=== PATIENT | male | born 1990 | race African-American/Black ===

== ENCOUNTER 2016-08-26 19:29 | Inpatient (IN) | payer MEDICAID, OTHER ==
[~2016-08-26] VITALS: Ht 167.6 cm; Wt 61.5 kg
[~2016-08-26 19:29] MED LIST: LACTATED RINGER'S 1000 ML INJ 2,000 ML IV ONE; ONDANSETRON HCL 4 MG/2 ML VIAL IV PUSH ONE; PHENYLEPH/NS 1000 MCG/10 ML SYR IV ONE; PROPOFOL 200 MG/20 ML AMP IV ONE
[2016-08-26 19:41] VITALS: BP 132/90; PULSE 78; RESP 20; TEMP 98; O2SAT 99
[2016-08-26] MEDS ORDERED: SODIUM CHLOR 0.9% 1000 ML INJ 1,000 ML IV SCH (21:28)
[2016-08-26] MEDS ORDERED: SODIUM CHLORIDE 0.9% FLUSH 10 ML FLUSH IV FLUSH PRN (21:30)
[2016-08-26] MEDS ORDERED: ONDANSETRON HCL 4 MG/2 ML VIAL IVP ONE (21:30)
--- NOTE | 2016-08-26 21:33 | PD ---
HPI Chief Complaint: Abdominal Pain Time Seen by Provider: 21:29 Travel History International Travel<30 days: No Contact w/Intl Traveler<30days: No Traveled to known affect area: No History of Present Illness HPI 27-year-old male presents to the emergency department for evaluation of abdominal pain for 2 days. Patient states it is on his right side. He is sleeping and is very lethargic on my exam, only waking up when I asked him to please answer my questions. The patient states he is out of custodial today. He states he has not been evaluated for this pain. No fevers or chills. No shortness of breath or chest pain. He reports nausea and vomiting. No diarrhea or constipation. No blood in the stool. He reports no chronic medical problems and takes no medications. He denies any previous surgeries or previous abdominal issues. [facility] Social History Alcohol Use: No Tobacco Use: No Substance Use: No Allergies-Medications (Allergen,Severity, Reaction): Coded Allergies: No Known Allergies (Unverified , 08/26/16) Reported Meds & Prescriptions Reported Meds & Active Scripts Active No Active Prescriptions or Reported Medications Review of Systems Except as stated in HPI: all other systems reviewed are Neg Physical Exam Narrative GENERAL: Well-nourished, well-developed male patient, Ambulatory. Afebrile. SKIN: Focused skin assessment warm/dry. HEAD: Normocephalic. Atraumatic. EYES: No scleral icterus. No injection or drainage. NECK: Supple, trachea midline. No JVD or lymphadenopathy. CARDIOVASCULAR: Regular rate and rhythm without murmurs, gallops, or rubs. RESPIRATORY: Breath sounds equal bilaterally. No accessory muscle use. Lungs sounds are clear to auscultation. GASTROINTESTINAL: Abdomen soft and nondistended. Patient has diffuse tenderness throughout. MUSCULOSKELETAL: No cyanosis, or edema. BACK: Nontender without obvious deformity. No CVA tenderness. Data Data Last Documented VS Vital Signs Date Time Temp Pulse Resp B/P Pulse Ox O2 Delivery O2 Flow Rate FiO2 08/26/16 22:51 84 14 111/80 99 Room Air 08/26/16 19:41 98.0 Orders Complete Blood Count With Diff (08/26/16 21:28) Comprehensive Metabolic Panel (08/26/16 21:28) Lipase (08/26/16 21:28) Iv Access Insert/Monitor (08/26/16 21:28) Ecg Monitoring (08/26/16 21:28) Oximetry (08/26/16 21:28) Ondansetron Inj (Zofran Inj) (08/26/16 21:30) Sodium Chlor 0.9% 1000 Ml Inj (Ns 1000 M (08/26/16 21:28) Sodium Chloride 0.9% Flush (Ns Flush) (08/26/16 21:30) Ct Abd/Pel W/O Iv Contrast (08/26/16 ) Blood Culture (08/26/16 22:31) Lactic Acid Sepsis Protocol (08/26/16 22:31) Sodium Chlor 0.9% 1000 Ml Inj (Ns 1000 M (08/26/16 22:45) Cefepime Inj (Maxipime Inj) (08/26/16 22:45) Piperacil-Tazo 4.5 Gm Premix (Zosyn 4.5 (08/26/16 22:45) Labs Laboratory Tests Test 08/26/16 21:40 White Blood Count 31.9 TH/MM3 Red Blood Count 5.64 MIL/MM3 Hemoglobin 16.4 GM/DL Hematocrit 47.4 % Mean Corpuscular Volume 84.0 FL Mean Corpuscular Hemoglobin 29.1 PG Mean Corpuscular Hemoglobin 34.7 % Concent Red Cell Distribution Width 13.3 % Platelet Count 221 TH/MM3 Mean Platelet Volume 9.6 FL Neutrophils (%) (Auto) 94.1 % Lymphocytes (%) (Auto) 2.0 % Monocytes (%) (Auto) 3.6 % Eosinophils (%) (Auto) 0.0 % Basophils (%) (Auto) 0.3 % Neutrophils # (Auto) 30.0 TH/MM3 Lymphocytes # (Auto) 0.6 TH/MM3 Monocytes # (Auto) 1.1 TH/MM3 Eosinophils # (Auto) 0.0 TH/MM3 Basophils # (Auto) 0.1 TH/MM3 CBC Comment AUTO DIFF Sodium Level 134 MEQ/L Potassium Level 4.2 MEQ/L Chloride Level 93 MEQ/L Carbon Dioxide Level 30.0 MEQ/L Anion Gap 11 MEQ/L Blood Urea Nitrogen 14 MG/DL Creatinine 1.24 MG/DL Estimat Glomerular Filtration 87 ML/MIN Rate Random Glucose 160 MG/DL Calcium Level 9.2 MG/DL Total Bilirubin 0.5 MG/DL Aspartate Amino Transf 13 U/L (AST/SGOT) Alanine Aminotransferase 22 U/L (ALT/SGPT) Alkaline Phosphatase 80 U/L Total Protein 8.1 GM/DL Albumin 4.0 GM/DL Lipase 128 U/L [facility] Medical Decision Making Medical Screen Exam Complete: Yes Emergency Medical Condition: Yes Medical Record Reviewed: Yes Interpretation(s) CT abdomen/pelvis - CONCLUSION: Free intraperitoneal air in the upper abdomen. The source of this free air is not seen, certainly a bowel perforation needs to be suspected. Differential Diagnosis Pancreatitis versus appendicitis versus diverticulitis versus gastritis Narrative Course 26-year-old male presents to the emergency department for evaluation of abdominal pain for 2 days. CBC, CMP, lipase are ordered and pending. CT abdomen/pelvis with IV contrast is ordered and pending. Patient is given normal saline 1 L IV bolus and Zofran 4 mg IV. CBC shows leukocytosis 31.9, neutrophil percentage is 94.1. CMP shows no acute abnormality. Lipase is 128. CT abdomen/pelvis shows free intraperitoneal air in the upper abdomen. The source of this free air is not seen, certainly a bowel perforation needs to be suspected. Patietn is given 2nd liter NS IV bolus. Blood cultures x2 and lactic acid are ordered and pending. Patient is started on cefepime and Zosyn. Surgeon central communications specialist , Dr. Joyce, is paged. Dr. Joyce is made aware and will review case. He accepted admission. Sepsis Criteria SIRS Criteria (2 or more): WBC > 75831, < 4000 or > 10% bands Diagnosis Primary Impression: Free intraperitoneal air Additional Impression: Bowel perforation Admitting Information Admitting Physician Requests: Admit Scripts No Active Prescriptions or Reported Meds Clarice Goldsmith August 26, 2016 21:33
[2016-08-26 22:24] LABS: BASOPHIL # 0.1 TH/MM3 (0-0.2); BASOPHIL % 0.3 % (0.0-2.0); HEMATOCRIT 47.4 % (39.0-51.0); LYMPHOCYTE # 0.6 TH/MM3 (1.0-4.8); MEAN CORPUSCULAR HEMOGLOBIN 29.1 PG (27.0-34.0); MEAN CORPUSCULAR HGB CONC 34.7 % (32.0-36.0); MONO % 3.6 % (0.0-8.0); NEUT % 94.1 % (16.0-70.0); PLATELET COUNT 221 TH/MM3 (150-450); RED BLOOD COUNT 5.64 MIL/MM3 (4.50-5.90); RED CELL DISTRIBUTION WIDTH 13.3 % (11.6-17.2); WHITE BLOOD COUNT 31.9 TH/MM3 (4.0-11.0)
[2016-08-26 22:26] LABS: HEMO FLAGS AUTO DIFF
--- NOTE | 2016-08-26 22:32 | RADRPT ---
EXAM DATE/TIME: 08/26/2016 21:59 [place] COMPARISON: No previous studies available for comparison. INDICATIONS : Abdominal pain. ORAL CONTRAST: No oral contrast ingested. RADIATION DOSE: 6.64 CTDIvol (mGy) MEDICAL HISTORY : None SURGICAL HISTORY : None. ENCOUNTER: Initial ACUITY: 3 days PAIN SCALE: 5/10 LOCATION: Abdomen TECHNIQUE: Volumetric scanning of the abdomen and pelvis was performed. Using automated exposure control and ad justment of the mA and/or kV according to patient size, radiation dose was kept as low as reasonably achievable to obtain optimal diagnostic quality images. FINDINGS: The CT of the abdomen and pelvis was originally ordered with contrast. After the first few seconds of the injection the patient demanded the injection be stopped. The injection was stopped. This patie nt was sent back to the emergency room. The CT was subsequently reordered as a CT of the abdomen and pelvis without contrast. There is free intraperitoneal air seen in the upper abdomen. The source of the free air is not clear ly identified. What appears to be the appendix is identified. Significantly dilated bowel is not cl early seen. The liver, spleen, pancreas, and adrenal glands appear grossly normal. There is contrast seen within the collecting system from the earlier partial injection. The kidneys appear otherwise normal. The re is a small amount of contrast within the urinary bladder. There is free fluid seen in the periton eal cavity in the pelvis. The lung bases are clear. The bony structures are grossly intact. CONCLUSION: Free intraperitoneal air in the upper abdomen. The source of this free air is not se en, certainly a bowel perforation needs to be suspected. Jean-Paul Kay MD on August 26, 2016 at 22:17 Board Certified Radiologist. This report was verified electronically.
[2016-08-26 22:36] LABS: ANION GAP 11 MEQ/L (5-15); AST (GOT) 13 U/L (15-37); BLOOD UREA NITROGEN 14 MG/DL (7-18); CHLORIDE 93 MEQ/L (98-107); GLOMERULAR FILTRATION RATE 87 ML/MIN (>89); POTASSIUM 4.2 MEQ/L (3.5-5.1); SODIUM (NA) 134 MEQ/L (136-145)
[2016-08-26 22:39] LABS: ALKALINE PHOSPHATASE 80 U/L (45-117); ALT (GPT) 22 U/L (12-78); TOTAL BILIRUBIN ADULT 0.5 MG/DL (0.2-1.0)
[2016-08-26] MEDS ORDERED: PIPERACIL-TAZO 4.5 GM PREMIX 100 ML IV ONE (22:45)
[2016-08-26] MEDS ORDERED: CEFEPIME INJ 2,000 MG in SODIUM CHLORIDE 0.9% INJ 100 ML IV ONE (22:45)
[2016-08-26] MEDS ORDERED: SODIUM CHLOR 0.9% 1000 ML INJ 1,000 ML IV ONE (22:45)
[2016-08-26 22:51] VITALS: BP 111/80; PULSE 84; RESP 14; O2SAT 99
[2016-08-26 22:55] LABS: BANDS 13 % (0-6); POLYS (SEG NEUTROPHILS) 78 % (16-70); WBC DIFF SAMPLE 100
[2016-08-26 22:56] LABS: PLATELET ESTIMATE SMEAR NORMAL (NORMAL); PLATELET MORPHOLOGY ENLARGED (NORMAL); SCAN/DIFF FINAL DIFF MANUAL; TOXIC VACUOLATION PRESENT (NONE SEEN)
[2016-08-27] VITALS (11 sets, daily range): BP systolic 117–153; BP diastolic 62–82; PULSE 60–76; RESP 16–22; TEMP 96.9–98.2; O2SAT 94–100
--- NOTE | 2016-08-27 00:56 | HHI.PR ---
Immediate Post Op Note Procedure Date: August 27, 2016 Pre Op Diagnosis: (1) Free intraperitoneal air Post Op Diagnosis: (1) Perforated chronic gastric ulcer Surgeon: Darell Joyce Climate Change Risk Assessor(s): staff Procedure: Exploratory laparotomy, modified grams patch, appendectomy Findings: small prepyloric channel ulcer Complications: none Specimen(s) removed: appendix Estimated blood loss: 25ml Anesthesia: General Drains: None IVF Patient to: PACU Patient Condition: Good Darell Joyce MD August 27, 2016 00:56
[2016-08-27] MEDS ORDERED: NALOXONE HCL 0.4 MG/ML AMP IV PRN ×2 (01:00)
[2016-08-27] MEDS ORDERED: ONDANSETRON HCL 4 MG/2 ML VIAL IV PRN (01:00)
[2016-08-27] MEDS: SODIUM CHLORIDE 0.9% FLUSH 10 ML FLUSH IV FLUSH SCH ×3 (01:00→21:00)
[2016-08-27] MEDS ORDERED: BENZOCAINE 20% ORAL SPR 60 ML CAN MT PRN (01:00)
[2016-08-27] MEDS: PCA - TOTAL MG MORPHINE DELIVERED PER SHIFT SCH ×4 (01:00→22:00)
[2016-08-27] MEDS ORDERED: diphenhydrAMINE HCL 50 MG/ML VIAL IV PRN (01:00)
[2016-08-27] MEDS ORDERED: Post-op Orders (for Pharmacy) MISC XX ONE (01:00)
[2016-08-27] MEDS ORDERED: SODIUM CHLORIDE 0.9% FLUSH 10 ML FLUSH IV FLUSH PRN (01:00)
[2016-08-27 01:03] LABS: LACTIC ACID GHOST NOT REPORTABLE
[2016-08-27] MEDS ORDERED: *MEPERIDINE 25 MG INJ VIAL PERIprocedural Use ONLY ONE (01:05)
[2016-08-27] MEDS ORDERED: *morphine SULFATE 8 MG/ML PERIprocedure ONLY ONE (01:05)
[2016-08-27] MEDS: SODIUM CHLOR 0.9% 1000 ML INJ 1,000 ML IV SCH ×4 (01:30→21:00)
[2016-08-27] MEDS: PANTOPRAZOLE SODIUM 40 MG VIAL IV SCH ×3 (01:55→21:49)
[2016-08-27] MEDS: ACETAMINOPHEN 1000 MG/100 ML VIAL IV SCH ×4 (02:15→17:46)
[2016-08-27] MEDS: MORPHINE SULFATE 30 MG/30 ML PCA IV SCH (02:15)
[2016-08-27] MEDS: PIPERACIL-TAZO 3.375 GM PREMIX 50 ML IV SCH ×3 (05:09→17:46)
--- NOTE | 2016-08-27 05:19 | MH ---
cc: YOMIRACHELDANIEL GILLETTE DATE OF ADMISSION: 08/26/2016 TIME 23:00 CHIEF COMPLAINT Free air, abdominal pain. HISTORY OF PRESENT ILLNESS The patient is a 26-year-old -[place] male who presented to [facility] Emergency Department with 48 hours of increasing abdominal pain on the right side. The patient was found to be hemodynamically stable, underwent CT scan which did show small dots of free air and a little bit of free fluid in the lesser sac. This was concerning for possible hollow viscous perforation. General Surgery was consulted. The patient denies any nausea, vomiting, diarrhea, constipation, fevers, chills, night sweats or any other complaints. The patient has no previous history of this pain and no previous medical problems or gastrointestinal issues. REVIEW OF SYSTEMS A 12-point review of systems is done with the patient and is negative except for the pertinent positives mentioned above in the History of Present Illness. PAST MEDICAL HISTORY None. PAST SURGICAL HISTORY None. ALLERGIES No known drug allergies. MEDICATIONS No home medications. SOCIAL HISTORY The patient denies alcohol, tobacco or illicit drug use. FAMILY HISTORY Noncontributory. PHYSICAL EXAMINATION VITAL SIGNS: Temperature of 98 degrees, pulse 84, respiratory rate 14, blood pressure 111/80, O2 saturation 99%. GENERAL: The patient is a well-developed, well-nourished, thin -Ind[place]ian male in no acute distress. He does appear comfortable. HEAD: Normocephalic, atraumatic. Pupils are round, reactive to accommodation and light. Sclerae anicteric. Mucous membranes are moist. NECK: Supple. No JVD, no lymphadenopathy. LUNGS: Clear to auscultation bilaterally. Nonlabored breathing pattern. HEART: Regular rhythm. No murmurs. ABDOMEN: Soft, nondistended. Tender to palpation in the right upper quadrant with voluntary guarding. No rebound. Some possibly early focal peritonitis without diffuse peritonitis. BACK: No CVA tenderness. Normal bowel sounds. No surgical scars. EXTREMITIES: No clubbing, cyanosis or edema. NEUROLOGIC EXAM: The patient is slightly lethargic but answers questions appropriately and is oriented x 3. Moving all extremities. Nonfocal. The cranial nerves II-XII are grossly intact. LABORATORY VALUES Elevated white blood cell count at 31.9, hemoglobin 16.4. IMAGING STUDIES Free air on CT scan without contrast. ASSESSMENT The patient is a 26-year-old male with 48 hours of increasing abdominal pain, leukocytosis and small dots of free air on CT scan. I have discussed with the patient the findings and did recommend laparotomy urgently for a possible perforated viscus. The risks, benefits and alternatives to exploratory laparotomy were discussed with the patient in detail. The patient agreed to undergo the procedure. PLAN 1. The patient was brought to the operating room urgently for exploration. 2. Will continue n.p.o. antibiotics. 3. Placed NG tube. 4. Continue IV fluid resuscitation. MD MOHSEN Bernal/FELIX /1:01 AM /5:04 AM
--- NOTE | 2016-08-27 06:23 | MP ---
cc: DANIEL GILLETTE DATE OF SURGERY 08/27/2016 PREOPERATIVE DIAGNOSIS Free air. POSTOPERATIVE DIAGNOSIS Perforated prepyloric ulcer. PROCEDURES 1. Exploratory laparotomy 2. Modified Dewey's patch repair of prepyloric ulcer. 3. Abdominal washout. 4. Incidental appendectomy. ANESTHESIA General. ATTENDING SURGEON MD Isiah [employer] SALESPERSON Staff. BLOOD LOSS 25 cc. COMPLICATIONS None. FINDINGS 1. Small 4-mm anterior prepyloric perforated ulcer with bile staining and examination throughout the abdomen. 2. Multiple large appendicoliths in the appendix. INDICATION FOR PROCEDURE The patient is a 26-year-old male with 48 hours of abdominal pain and CT scan showing free air and small amount of free fluid. The risks, benefits and alternatives to emergent exploratory surgery were discussed with the patient and the patient agreed to undergo the procedure. PROCEDURE Informed consent was obtained and the patient was taken to the operating room, placed in supine position, placed under general endotracheal anesthesia. The patient's abdomen was shaved, prepped and draped in sterile fashion. Time-out was performed. We entered the patient's abdomen with a midline incision from below the xiphoid to just below the umbilicus. This was with a 10 blade scalpel. We used Bovie electrocautery to dissect the subcutaneous tissue and open the midline fascia the entire length of the incision. A Bookwalter retractor was placed to gain better exposure. We then explored the abdomen. There was clearly some bile staining and inflammation under the left lobe of liver next to the gallbladder and a small perforation of 3-mm was identified in the prepyloric position anteriorly. We did open the lesser sac at the posterior side of stomach and this appeared grossly normal. We did look at the colon, the extraperitoneal portion as well as ran the small bowel quickly and there was no other pathology. Of note, there were multiple large appendicoliths in the appendix. The appendix was mildly injected but there is no evidence of any valente acute appendicitis. We turned our attention towards the ulcer. We did perform a modified Dewey's patch by closing the pyloric channel ulcer with three interrupted 3-0 silk sutures and we had complete closure. We then placed the greater omentum over the repair and placed additional sutures to secure this over the repair. We then performed incidental appendectomy. This was due to concern for possible high risk of appendicitis due to large impacted appendicoliths in the appendix. The base was free and healthy and we divided this with a 3-0 silk tie and then divided with the Bovie electrocautery. We placed a right-angle around the appendiceal artery and divided this with Metzenbaum scissors. The appendix was now removed and passed off for permanent processing. We then placed a 3-0 silk suture stick tie around the appendiceal mesentery and tied this down with excellent hemostasis. We then placed a Z-type stitch on the cecum to dunk the appendix into the cecum completely. We then irrigated out the entire abdomen with approximately 4 liters of warm saline until all succinate was clear in all four quadrants. All succinate was removed and no evidence of any leak, bleeding or of any complication. We turned our attention towards closure. I made sure the bowel lay in normal anatomic position and placed the greater omentum over the midline. We closed the abdomen with a #1 looped running PDS suture, closed the skin with lacie and a sterile dressing was applied. The patient was discontinued from anesthesia and taken to the PACU in stable addition. The patient tolerated the procedure well with no apparent complications. All counts were correct and I was present and scrubbed for the entire procedure. MD MOHSEN Bernal/FELIX /1:05 AM /6:11 AM
[2016-08-27] MEDS ORDERED: MIDAZOLAM HCL 2 MG/2 ML VIAL ONE (07:21)
[2016-08-27] MEDS ORDERED: fentaNYL CITRATE 250 MCG/5 ML AMP ONE (07:21)
--- NOTE | 2016-08-27 10:59 | HHI.PR ---
Subjective Subjective Notes pain ok Objective Vitals/I&O Vital Signs Date Time Temp Pulse Resp B/P Pulse Ox O2 Delivery O2 Flow Rate FiO2 08/27/16 08:00 96.9 72 16 134/82 94 08/27/16 03:00 Nasal Cannula 2 08/27/16 02:03 40 Labs Laboratory Tests Test 08/26/16 08/26/16 08/27/16 21:40 22:40 05:15 White Blood Count 31.9 Red Blood Count 5.64 Hemoglobin 16.4 Hematocrit 47.4 Mean Corpuscular Volume 84.0 Mean Corpuscular Hemoglobin 29.1 Mean Corpuscular Hemoglobin 34.7 Concent Red Cell Distribution Width 13.3 Platelet Count 221 Mean Platelet Volume 9.6 Neutrophils (%) (Auto) 94.1 Lymphocytes (%) (Auto) 2.0 Monocytes (%) (Auto) 3.6 Eosinophils (%) (Auto) 0.0 Basophils (%) (Auto) 0.3 Neutrophils # (Auto) 30.0 Lymphocytes # (Auto) 0.6 Monocytes # (Auto) 1.1 Eosinophils # (Auto) 0.0 Basophils # (Auto) 0.1 CBC Comment AUTO DIFF Differential Total Cells 100 Counted Neutrophils % (Manual) 78 Band Neutrophils % 13 Lymphocytes % 2 Monocytes % 7 Neutrophils # (Manual) 29.0 Differential Comment FINAL DIFF MANUAL Toxic Vacuolation PRESENT Platelet Estimate NORMAL Platelet Morphology Comment ENLARGED Red Cell Morphology Comment NORMAL Sodium Level 134 Potassium Level 4.2 Chloride Level 93 Carbon Dioxide Level 30.0 Anion Gap 11 Blood Urea Nitrogen 14 Creatinine 1.24 Estimat Glomerular Filtration 87 Rate Random Glucose 160 Calcium Level 9.2 Total Bilirubin 0.5 Aspartate Amino Transf 13 (AST/SGOT) Alanine Aminotransferase 22 (ALT/SGPT) Alkaline Phosphatase 80 Total Protein 8.1 Albumin 4.0 Lipase 128 Lactic Acid Level 4.0 1.3 Date/Time Procedure Status Source Growth 08/26/16 22:41 Aerobic Blood Culture Received Blood Peripheral Pending 08/26/16 22:41 Anaerobic Blood Culture Received Blood Peripheral Pending Cardiovascular: Regular Lungs: Clear Abdomen: Non-distended, Post-op tenderness Extremities: No edema, Perfused, SCD's on Narrative Exam bandage c/d/i A/P Assessment and Plan 26yo male s/p ExLap, grams patch repair of perforated prepyloric ulcer, stable. - keep NG until low output and return of bowel function - ABX - OOB, ok to chew gum and ambulate - DIRECTOR AUTOMOTIVE - CM working on contacting pt.s service officer Darell Joyce MD August 27, 2016 10:59
[2016-08-27] MEDS ORDERED: FLUCONAZOLE 400 MG PREMIX BAG 200 ML IV ONE (18:00)
[2016-08-28] VITALS (7 sets, daily range): BP systolic 112–132; BP diastolic 58–87; PULSE 62–77; RESP 16–20; TEMP 95.9–98.4; O2SAT 95–100
[2016-08-28] MEDS: PIPERACIL-TAZO 3.375 GM PREMIX 50 ML IV SCH ×5 (00:32→23:46)
[2016-08-28] MEDS: ENOXAPARIN SODIUM 40 MG/0.4 ML SYRINGE SQ SCH ×2 (00:32→23:46)
[2016-08-28] MEDS: MORPHINE SULFATE 30 MG/30 ML PCA IV SCH ×3 (01:38→20:28)
[2016-08-28] MEDS: SODIUM CHLOR 0.9% 1000 ML INJ 1,000 ML IV SCH ×3 (03:40→16:52)
[2016-08-28 05:23] LABS: AUTOMATED NEUTROPHIL # 12.3 TH/MM3 (1.8-7.7); BASOPHIL % 0.3 % (0.0-2.0); EOSINOPHIL # 0.2 TH/MM3 (0-0.4); EOSINOPHIL % 1.2 % (0.0-4.0); HEMATOCRIT 38.6 % (39.0-51.0); HEMO FLAGS DIFF FINAL; LYMPH % 10.6 % (9.0-44.0); LYMPHOCYTE # 1.6 TH/MM3 (1.0-4.8); MEAN CELL VOLUME 86.5 FL (80.0-100.0); MEAN CORPUSCULAR HEMOGLOBIN 29.7 PG (27.0-34.0); MEAN CORPUSCULAR HGB CONC 34.3 % (32.0-36.0); MONO % 4.6 % (0.0-8.0); NEUT % 83.3 % (16.0-70.0); PLATELET COUNT 170 TH/MM3 (150-450); RED BLOOD COUNT 4.46 MIL/MM3 (4.50-5.90); RED CELL DISTRIBUTION WIDTH 13.2 % (11.6-17.2); WHITE BLOOD COUNT 14.8 TH/MM3 (4.0-11.0)
[2016-08-28 05:52] LABS: BICARBONATE 30.5 MEQ/L (21.0-32.0); POTASSIUM 4.1 MEQ/L (3.5-5.1)
[2016-08-28] MEDS: PCA - TOTAL MG MORPHINE DELIVERED PER SHIFT SCH ×3 (06:00→19:54)
[2016-08-28] MEDS: PANTOPRAZOLE SODIUM 40 MG VIAL IV SCH ×2 (08:05→19:51)
[2016-08-28] MEDS: SODIUM CHLORIDE 0.9% FLUSH 10 ML FLUSH IV FLUSH SCH ×2 (08:07→19:51)
--- NOTE | 2016-08-28 17:28 | HHI.PR ---
Subjective Subjective Notes Wants to eat. Objective Vitals/I&O Vital Signs Date Time Temp Pulse Resp B/P Pulse Ox O2 Delivery O2 Flow Rate FiO2 08/28/16 16:01 96.2 66 16 132/83 100 08/28/16 10:40 21 08/27/16 21:09 Nasal Cannula 2.00 Labs Laboratory Tests Test 08/28/16 04:49 White Blood Count 14.8 Red Blood Count 4.46 Hemoglobin 13.2 Hematocrit 38.6 Mean Corpuscular Volume 86.5 Mean Corpuscular Hemoglobin 29.7 Mean Corpuscular Hemoglobin 34.3 Concent Red Cell Distribution Width 13.2 Platelet Count 170 Mean Platelet Volume 9.6 Neutrophils (%) (Auto) 83.3 Lymphocytes (%) (Auto) 10.6 Monocytes (%) (Auto) 4.6 Eosinophils (%) (Auto) 1.2 Basophils (%) (Auto) 0.3 Neutrophils # (Auto) 12.3 Lymphocytes # (Auto) 1.6 Monocytes # (Auto) 0.7 Eosinophils # (Auto) 0.2 Basophils # (Auto) 0.0 CBC Comment DIFF FINAL Differential Comment Sodium Level 137 Potassium Level 4.1 Chloride Level 101 Carbon Dioxide Level 30.5 Anion Gap 6 Blood Urea Nitrogen 11 Creatinine 1.03 Estimat Glomerular Filtration 108 Rate Random Glucose 92 Calcium Level 9.0 Date/Time Procedure Status Source Growth 08/26/16 22:41 Aerobic Blood Culture - Preliminary Resulted Blood Peripheral NO GROWTH IN 2 DAYS 08/26/16 22:41 Anaerobic Blood Culture - Preliminary Resulted Blood Peripheral NO GROWTH IN 2 DAYS Lungs: Clear Abdomen: Non-distended, Post-op tenderness Narrative Exam NG output 550 ml/24 hr A/P Assessment and Plan POD #1 Ex lap/Dewey patch Doing well May clamp NG and remove tomorrow per Dr. Isiah Roberson,Manpreet Sky MD August 28, 2016 17:28
[2016-08-28] MEDS: FLUCONAZOLE 200 MG PREMIX BAG 100 ML IV SCH (18:23)
[2016-08-29] VITALS (7 sets, daily range): BP systolic 119–140; BP diastolic 75–98; PULSE 62–77; RESP 17–20; TEMP 95.9–98.4; O2SAT 98–100
[2016-08-29] MEDS: PIPERACIL-TAZO 3.375 GM PREMIX 50 ML IV SCH ×4 (05:00→22:48)
[2016-08-29] MEDS: PCA - TOTAL MG MORPHINE DELIVERED PER SHIFT SCH ×3 (05:48→21:35)
[2016-08-29] MEDS: MORPHINE SULFATE 30 MG/30 ML PCA IV SCH (06:14)
[2016-08-29] MEDS: SODIUM CHLOR 0.9% 1000 ML INJ 1,000 ML IV SCH ×2 (06:20→13:00)
[2016-08-29] MEDS: SODIUM CHLORIDE 0.9% FLUSH 10 ML FLUSH IV FLUSH SCH ×2 (08:06→19:17)
[2016-08-29] MEDS: PANTOPRAZOLE SODIUM 40 MG VIAL IV SCH ×2 (08:06→19:19)
--- NOTE | 2016-08-29 11:24 | HHI.PR ---
Subjective Subjective Notes stable, no fevers, wants to eat Objective Vitals/I&O Vital Signs Date Time Temp Pulse Resp B/P Pulse Ox O2 Delivery O2 Flow Rate FiO2 08/29/16 09:24 21 08/29/16 08:00 95.9 66 18 138/98 99 08/27/16 21:09 Nasal Cannula 2.00 Labs Date/Time Procedure Status Source Growth 08/26/16 22:41 Aerobic Blood Culture - Preliminary Resulted Blood Peripheral NO GROWTH IN 3 DAYS 08/26/16 22:41 Anaerobic Blood Culture - Preliminary Resulted Blood Peripheral NO GROWTH IN 3 DAYS Cardiovascular: Regular Lungs: Clear Abdomen: Other (soft incision c/d/i, mild ttp) A/P Assessment and Plan POD #2 Ex lap/Dewey patch wbc trending down will recheck today d/c ng ok for slips of clears lovenox dvt ppx encourage Chuck Schilling MD August 29, 2016 11:24
[2016-08-29 16:24] LABS: AUTOMATED NEUTROPHIL # 6.3 TH/MM3 (1.8-7.7); BASOPHIL # 0.1 TH/MM3 (0-0.2); BASOPHIL % 0.6 % (0.0-2.0); EOSINOPHIL # 0.5 TH/MM3 (0-0.4); EOSINOPHIL % 5.8 % (0.0-4.0); HEMATOCRIT 41.3 % (39.0-51.0); HEMO FLAGS DIFF FINAL; LYMPH % 17.3 % (9.0-44.0); LYMPHOCYTE # 1.5 TH/MM3 (1.0-4.8); MEAN CELL VOLUME 86.1 FL (80.0-100.0); MEAN CORPUSCULAR HEMOGLOBIN 29.4 PG (27.0-34.0); MEAN CORPUSCULAR HGB CONC 34.2 % (32.0-36.0); MONO % 5.2 % (0.0-8.0); NEUT % 71.1 % (16.0-70.0); PLATELET COUNT 173 TH/MM3 (150-450); RED CELL DISTRIBUTION WIDTH 13.5 % (11.6-17.2); WHITE BLOOD COUNT 8.9 TH/MM3 (4.0-11.0)
[2016-08-29] MEDS: FLUCONAZOLE 200 MG PREMIX BAG 100 ML IV SCH (17:48)
[2016-08-29] MEDS: ENOXAPARIN SODIUM 40 MG/0.4 ML SYRINGE SQ SCH (22:48)
[2016-08-30] VITALS (7 sets, daily range): BP systolic 113–138; BP diastolic 59–86; PULSE 67–78; RESP 16–17; TEMP 96–98.7; O2SAT 97–99
[2016-08-30] MEDS: PCA - TOTAL MG MORPHINE DELIVERED PER SHIFT SCH ×3 (05:40→22:00)
[2016-08-30] MEDS: PIPERACIL-TAZO 3.375 GM PREMIX 50 ML IV SCH ×4 (05:40→23:44)
[2016-08-30] MEDS: SODIUM CHLOR 0.9% 1000 ML INJ 1,000 ML IV SCH ×3 (09:00→23:44)
[2016-08-30] MEDS: PANTOPRAZOLE SODIUM 40 MG VIAL IV SCH ×2 (09:34→20:18)
[2016-08-30] MEDS: SODIUM CHLORIDE 0.9% FLUSH 10 ML FLUSH IV FLUSH SCH ×2 (09:35→20:18)
--- NOTE | 2016-08-30 17:29 | HHI.PR ---
Subjective Subjective Notes Patient seen around 0700---Resting in bed Objective Vitals/I&O Vital Signs Date Time Temp Pulse Resp B/P Pulse Ox O2 Delivery O2 Flow Rate FiO2 08/30/16 16:00 96.0 74 17 129/86 99 08/29/16 20:35 21 08/27/16 21:09 Nasal Cannula 2.00 Labs Date/Time Procedure Status Source Growth 08/26/16 22:41 Aerobic Blood Culture - Preliminary Resulted Blood Peripheral NO GROWTH IN 4 DAYS 08/26/16 22:41 Anaerobic Blood Culture - Preliminary Resulted Blood Peripheral NO GROWTH IN 4 DAYS Cardiovascular: Regular Lungs: Clear Abdomen: Other (midline incision c/d/i; soft ), Post-op tenderness Extremities: No edema A/P Assessment and Plan 26 year old male s/p ex lap; repair of pre-pyloric ulcer with Dewey patch -Clears -OOB and mobilize -Pain control -IS Attending Statement The exam, history, and the medical decision-making described in the above note were completed with the assistance of the mid-level provider. I reviewed and agree with the findings presented. I attest that I had a [id number] encounter with the patient on the same day, and personally performed and documented my assessment and findings in the medical record. Abdominal exam stable, postop tenderness on exam will need empiric H. pylori treatment Sakshi Brown August 30, 2016 17:29 Darell Joyce MD September 21, 2016 16:12
[2016-08-30] MEDS: FLUCONAZOLE 200 MG PREMIX BAG 100 ML IV SCH (17:57)
[2016-08-30] MEDS: MORPHINE SULFATE 30 MG/30 ML PCA IV SCH (18:08)
[2016-08-30] MEDS: ENOXAPARIN SODIUM 40 MG/0.4 ML SYRINGE SQ SCH (23:39)
[2016-08-31] VITALS (7 sets, daily range): BP systolic 115–139; BP diastolic 68–88; PULSE 58–74; RESP 16–18; TEMP 96.7–97.7; O2SAT 92–100
[2016-08-31] MEDS: SODIUM CHLOR 0.9% 1000 ML INJ 1,000 ML IV SCH ×3 (05:00→22:53)
[2016-08-31] MEDS: PIPERACIL-TAZO 3.375 GM PREMIX 50 ML IV SCH ×2 (05:30→11:38)
[2016-08-31] MEDS: PCA - TOTAL MG MORPHINE DELIVERED PER SHIFT SCH ×3 (05:32→21:56)
[2016-08-31] MEDS: SODIUM CHLORIDE 0.9% FLUSH 10 ML FLUSH IV FLUSH SCH ×2 (08:48→20:19)
[2016-08-31] MEDS: PANTOPRAZOLE SODIUM 40 MG VIAL IV SCH ×2 (08:48→20:15)
[2016-08-31] MEDS: MORPHINE SULFATE 30 MG/30 ML PCA IV SCH (11:41)
--- NOTE | 2016-08-31 16:33 | HHI.PR ---
Subjective Subjective Notes Resting in bed Tolerating full liquids Objective Vitals/I&O Vital Signs Date Time Temp Pulse Resp B/P Pulse Ox O2 Delivery O2 Flow Rate FiO2 08/31/16 12:00 96.7 66 18 120/76 99 08/29/16 20:35 21 08/27/16 21:09 Nasal Cannula 2.00 Labs Date/Time Procedure Status Source Growth 08/26/16 22:41 Aerobic Blood Culture - Final Complete Blood Peripheral NO GROWTH IN 5 DAYS 08/26/16 22:41 Anaerobic Blood Culture - Final Complete Blood Peripheral NO GROWTH IN 5 DAYS Cardiovascular: Regular Lungs: Clear Abdomen: Other (midline incision with lacie---c/d/i; mildly distended ) Extremities: No edema A/P Assessment and Plan 26 year old male s/p ex lap; repair of pre-pyloric ulcer with Dewey patch -Tolerated fulls -Transition to PO antibiotics -Transition to PO pain meds -OOB and mobilize -Pain control -IS Attending Statement The exam, history, and the medical decision-making described in the above note were completed with the assistance of the mid-level provider. I reviewed and agree with the findings presented. I attest that I had a [id number] encounter with the patient on the same day, and personally performed and documented my assessment and findings in the medical record. Abdominal exam stable, postop tenderness only, will advance diet slowly, continue ABX Skashi Brown August 31, 2016 16:32 Darell Joyce MD September 21, 2016 16:21
[2016-08-31] MEDS: AMOXICILLIN/CLAVULANATE K 875 MG TAB PO SCH (20:15)
[2016-08-31] MEDS: ENOXAPARIN SODIUM 40 MG/0.4 ML SYRINGE SQ SCH (23:29)
[2016-09-01] VITALS (7 sets, daily range): BP systolic 113–122; BP diastolic 66–81; PULSE 59–66; RESP 16–18; TEMP 96.4–98.3; O2SAT 96–100
[2016-09-01] MEDS: PCA - TOTAL MG MORPHINE DELIVERED PER SHIFT SCH ×3 (04:46→22:00)
[2016-09-01] MEDS: FLUCONAZOLE 200 MG TAB PO SCH (09:15)
[2016-09-01] MEDS: AMOXICILLIN/CLAVULANATE K 875 MG TAB PO SCH ×2 (09:15→20:10)
[2016-09-01] MEDS: SODIUM CHLORIDE 0.9% FLUSH 10 ML FLUSH IV FLUSH SCH ×2 (09:15→20:13)
[2016-09-01] MEDS: PANTOPRAZOLE SODIUM 40 MG VIAL IV SCH ×2 (09:15→20:13)
[2016-09-01] MEDS: SODIUM CHLOR 0.9% 1000 ML INJ 1,000 ML IV SCH (12:13)
--- NOTE | 2016-09-01 18:34 | HHI.PR ---
Subjective Subjective Notes Patient seen around 0730---sleeping in bed in no acute distress Objective Vitals/I&O Vital Signs Date Time Temp Pulse Resp B/P Pulse Ox O2 Delivery O2 Flow Rate FiO2 09/01/16 16:30 98.3 66 18 122/70 97 09/01/16 11:55 21 Cardiovascular: Regular Lungs: Clear Abdomen: Other (midline incision with lacie---c/d/i ) Extremities: No edema A/P Assessment and Plan 26 year old male s/p ex lap; repair of pre-pyloric ulcer with Dewey patch -Tolerated fulls ---plan to advance diet tomorrow -Transition to PO antibiotics -Transition to PO pain meds -OOB and mobilize -Pain control -IS Attending Statement The exam, history, and the medical decision-making described in the above note were completed with the assistance of the mid-level provider. I reviewed and agree with the findings presented. I attest that I had a [id number] encounter with the patient on the same day, and personally performed and documented my assessment and findings in the medical record. Abdominal exam stable, postop tenderness on exam, no rebound tenderness or peritonitis advance diet, oral ABX and pain meds, DC Sakshi Waller September 01, 2016 18:33 Darell Joyce MD September 21, 2016 16:33
[2016-09-01] MEDS ORDERED: ACETAMINOPHEN/HYDROcodone 325 MG/5 MG TAB PO PRN ×2 (19:00)
[2016-09-01] MEDS ORDERED: BISACODYL 10 MG SUPP RECTAL ONE (19:00)
[2016-09-01] MEDS ORDERED: LACTULOSE SYRUP 20 GM/30 ML CUP PO ONE (19:00)
[2016-09-01] MEDS ORDERED: BISACODYL EC 5 MG TABEC PO ONE (19:00)
[2016-09-01] MEDS: MAGNESIUM HYDROXIDE SUSP 30 ML CUP PO SCH (20:10)
[2016-09-01] MEDS: ENOXAPARIN SODIUM 40 MG/0.4 ML SYRINGE SQ SCH (23:50)
[2016-09-02] VITALS: BP 137/85; PULSE 65; RESP 18; TEMP 97.6; O2SAT 98
[2016-09-02] MEDS: SODIUM CHLOR 0.9% 1000 ML INJ 1,000 ML IV SCH (01:33)
[2016-09-02] MEDS: PCA - TOTAL MG MORPHINE DELIVERED PER SHIFT SCH ×2 (06:00→12:36)
[2016-09-02 08:00] VITALS: BP 117/80; PULSE 76; RESP 18; TEMP 96.4; O2SAT 100
[2016-09-02] MEDS: MAGNESIUM HYDROXIDE SUSP 30 ML CUP PO SCH (09:00)
[2016-09-02] MEDS: SODIUM CHLORIDE 0.9% FLUSH 10 ML FLUSH IV FLUSH SCH (09:16)
[2016-09-02] MEDS: AMOXICILLIN/CLAVULANATE K 875 MG TAB PO SCH (09:16)
[2016-09-02] MEDS: PANTOPRAZOLE SODIUM 40 MG VIAL IV SCH (09:16)
[2016-09-02] MEDS: FLUCONAZOLE 200 MG TAB PO SCH (09:16)
[2016-09-02] MEDS ORDERED: [UNRECOGNIZED DRUG - CODE] CHEW (11:02)
[2016-09-02] MEDS ORDERED: AMOX875T PO ×2 (11:02→11:47)
[2016-09-02] MEDS ORDERED: OMEP20TA PO (11:02)
[2016-09-02] MEDS ORDERED: METR-1 PO (11:02)
[2016-09-02] MEDS ORDERED: AMOX500T PO (11:47)
--- NOTE | 2016-09-21 11:06 | HHI.DS ---
Discharge Summary Admission Date August 26, 2016 at 22:53 Discharge Date: September 02, 2016 Admitting Diagnosis free intraperitoneal air; bowel perforation Brief History 26 year old male s/p ex lap; repair of pre-pyloric ulcer with Dewey patch PE at Discharge Alert awake resting in bed Cardio: RRR Resp: CTAB Abd: midline incision with lacie in place; soft Hospital Course This is a 26 year old male s/p ex lap; repair of pre-pyloric ulcer with Dewey patch. The patient's diet was advance once bowel function returned. His pain was controlled using oral pain medications. He was transitioned to antibiotics by mouth by mouth he was able to ambulate independently. He will follow-up in the office in about one week for staple removal. -Tolerated fulls ---plan to advance diet tomorrow -Transition to PO antibiotics -Transition to PO pain meds -OOB and mobilize -Pain control -IS Pt Condition on Discharge: Good Discharge Disposition: Discharge Home Discharge Instructions DIET: Follow Instructions for: As Tolerated, No Restrictions Activities you can perform: See Additionl Instruction Other Activity Instructions: Okay to shower; pat incision dry Avoid heavy pulling pushing and lifting Sakshi Brown September 21, 2016 11:06
== END 2016-09-02 13:55 | disposition home or self-care (01) | DRG 331 ==
LOC: NEPC 19:29 → NEDA 22:53 → HPAC 08-27 00:27 → N06B 08-27 03:25
PROVIDERS: ADMIT Surgery; ATTEND Surgery
PROC: 0DU907Z Supplement Duodenum with Autologous Tissue Substitute, Open Approach (ICD-10-PCS; principal; 2016-08-27)
PROC: 0DTJ0ZZ Resection of Appendix, Open Approach (ICD-10-PCS; 2016-08-27)
DX: K25.5 Chronic or unspecified gastric ulcer with perforation (principal); K38.1 Appendicular concretions
CPT/HCPCS: 74176; 80048; 80053; 83605; 83690; 85007; 85025; 85027; 87040; 88304; 94002; 94150; C9113; J0131; J1450; J1650; J2175; J2250; J2270; J2370; J2405; J2543; J3010; J7030; J7120

== ENCOUNTER 2016-10-02 09:41 | Emergency (ER) | payer MEDICAID, OTHER ==
[~2016-10-02 09:41] MED LIST changes: +AMOX500T PO; +AMOX875T PO; -LACTATED RINGER'S 1000 ML INJ 2,000 ML IV ONE; +METR-1 PO; +OMEP20TA PO; -ONDANSETRON HCL 4 MG/2 ML VIAL IV PUSH ONE; -PHENYLEPH/NS 1000 MCG/10 ML SYR IV ONE; -PROPOFOL 200 MG/20 ML AMP IV ONE; +[UNRECOGNIZED DRUG - CODE] CHEW
[2016-10-02 09:43] VITALS: BP 115/72; PULSE 92; RESP 20; TEMP 98.2; O2SAT 98
--- NOTE | 2016-10-02 10:01 | PD ---
HPI Chief Complaint: Wound/Suture/Staple Re-Check Time Seen by Provider: 09:53 Travel History International Travel<30 days: No Contact w/Intl Traveler<30days: No Traveled to known affect area: No History of Present Illness HPI 26-year-old male here for staple removal. On 08/27 patient presented to the emergency department with abdominal pain and had a prepyloric ulcer with perforation. Had ex-lap with Dewey patch repair to Dr. Joyce. He never followed up. He presents now to the emergency department today requesting staple removal. His wound has been healing well and he does not have any associated abdominal pain. PFSH Past Medical History Anxiety: No Depression: No Cancer: No Cardiovascular Problems: No Diminished Hearing: No Endocrine: No Gastrointestinal Disorders: Yes Genitourinary: No Musculoskeletal: No Neurologic: No Psychiatric: No Respiratory: No Tetanus Vaccination: < 5 Years Influenza Vaccination: No Past Surgical History Abdominal Surgery: Yes Social History Alcohol Use: No Tobacco Use: Yes (1 pack per day) Substance Use: No Allergies-Medications (Allergen,Severity, Reaction): Coded Allergies: No Known Allergies (Unverified , 10/02/16) Reported Meds & Prescriptions Reported Meds & Active Scripts Active No Active Prescriptions or Reported Medications Review of Systems Except as stated in HPI: all other systems reviewed are Neg Physical Exam Narrative GENERAL: Well appearing male in no acute distress SKIN: Focused skin assessment warm/dry. HEAD: Normocephalic. EYES: No scleral icterus. No injection or drainage. CARDIOVASCULAR: Regular rate and rhythm. RESPIRATORY: No accessory muscle use. GASTROINTESTINAL: Abdomen soft, non-tender, nondistended. Wound appears well healed. Hakn remain intact MUSCULOSKELETAL: Normal gait NEUROLOGICAL: Awake and alert. Normal speech. PSYCHIATRIC: insight and judgment poor Data Data Last Documented VS Vital Signs Date Time Temp Pulse Resp B/P Pulse Ox O2 Delivery O2 Flow Rate FiO2 10/02/16 10:03 97.8 76 17 110/77 99 10/02/16 09:43 Room Air MDM Medical Decision Making Medical Screen Exam Complete: Yes Emergency Medical Condition: Yes Medical Record Reviewed: Yes Differential Diagnosis 26-year-old male approximately 5 weeks status post ex-lap for perforated prepyloric ulcer with Dewey patch repair here for staple removal. Wound appears well healing clinically and it is well past time for his hank to come out. Narrative Course Hank were removed. His surgeon was informed that patient was seen here in the emergency department after missing his visit, and the wound appears well- healed. Diagnosis Primary Impression: Encounter for removal of sutures Referrals: Darell Joyce MD as needed Med/Other Pt SpecificInfo: No Change to Meds Scripts No Active Prescriptions or Reported Meds Disposition: 01 DISCHARGE HOME Condition: Stable Yennifer Michel MD Oct 02, 2016 10:01
[2016-10-02 10:03] VITALS: BP 110/77; TEMP 97.8
== END 2016-10-02 10:05 | disposition home or self-care (01) ==
LOC: NEPK 09:41
DX: K25.5 Chronic or unspecified gastric ulcer with perforation (principal); F17.210 Nicotine dependence, cigarettes, uncomplicated; Z48.02 Encounter for removal of sutures
CPT/HCPCS: 99281

== ENCOUNTER 2017-01-18 19:57 | Emergency (ER) | payer MEDICAID ==
[~2017-01-18] VITALS: Ht 177.8 cm; Wt 72.0 kg
[2017-01-18 20:10] VITALS: BP 118/66; PULSE 57; RESP 12; TEMP 98.5; O2SAT 99
[2017-01-18 20:12] VITALS: RESP 19; O2SAT 99
[2017-01-18] MEDS ORDERED: SODIUM CHLORIDE 0.9% FLUSH 10 ML FLUSH IVF PRN (20:30)
--- NOTE | 2017-01-18 20:38 | RADRPT ---
EXAM DATE/TIME: 01/18/2017 20:17 [facility] COMPARISON: No previous studies available for comparison. INDICATIONS : Chest pain. MEDICAL HISTORY : None. SURGICAL HISTORY : None. ENCOUNTER: Initial ACUITY: 1 day PAIN SCORE: Non-responsive. LOCATION: Bilateral chest FINDINGS: There is a diffuse hazy infiltrate at the right lung. Left lung appears clear. Heart size normal. CONCLUSION: Mild diffuse hazy infiltrate of the right lung. Jean-Paul Barnard MD on January 18, 2017 at 20:36 Board Certified Radiologist. This report was verified electronically.
--- NOTE | 2017-01-18 20:39 | PD ---
HPI Chief Complaint: Chest Pain Time Seen by Provider: 20:15 Travel History International Travel<30 days: No Contact w/Intl Traveler<30days: No Traveled to known affect area: No History of Present Illness HPI Patient comes in under police custody complaining of sharp stabbing substernal chest pain ongoing ever since having abdominal surgery in August of this year. Patient states pain is constant without radiation. Patient denies anything making it better or worse. Patient denies being evaluated for this previously. Denies any shortness breath, fevers, nausea, vomiting, abdominal pain, back pain, headache, or numbness or tingling anywhere. PFSH Past Medical History Anxiety: No Depression: No Cancer: No Cardiovascular Problems: No Diminished Hearing: No Endocrine: No Gastrointestinal Disorders: Yes Genitourinary: No Musculoskeletal: No Neurologic: No Psychiatric: No Respiratory: No Tetanus Vaccination: < 5 Years Past Surgical History Abdominal Surgery: Yes (EXPLORATORY LAP) Social History Alcohol Use: No Tobacco Use: Yes (1 pack per day) Substance Use: No Allergies-Medications (Allergen,Severity, Reaction): Coded Allergies: No Known Allergies (Unverified , 01/18/17) Reported Meds & Prescriptions Reported Meds & Active Scripts Active Zithromax Z-Joni (Azithromycin) 250 Mg Dspk 250 Mg PO DIRECTED 500 MG (2 tabs) day 1, then 1 tab days 2-5. Review of Systems Except as stated in HPI: all other systems reviewed are Neg Physical Exam Narrative GENERAL: Well-developed, well nourished, in no acute distress, and non-ill appearing. Patient is sleeping on exam but is easily awoken and then falls back asleep again. SKIN: Focused skin assessment warm and dry. HEAD: Atraumatic. Normocephalic. EYES: Pupils equal and round. EOMI. No scleral icterus. No injection or drainage. ENT: No nasal bleeding or discharge. Mucous membranes pink and moist. NECK: Trachea midline. No JVD. Supple. No nuclear rigidity. CARDIOVASCULAR: Regular rate and rhythm. No murmur appreciated. RESPIRATORY: No accessory muscle use. No respiratory distress. Clear to auscultation. Breath sounds equal bilaterally. MUSCULOSKELETAL: No obvious deformities. No clubbing. No cyanosis. No edema. Full range of motion. NEUROLOGICAL: Awake and alert. No obvious cranial nerve deficits. Motor grossly within normal limits. Normal speech. PSYCHIATRIC: Appropriate mood and affect; insight and judgment normal. Data Data Last Documented VS Vital Signs Date Time Temp Pulse Resp B/P (MAP) Pulse Ox O2 Delivery O2 Flow Rate FiO2 01/18/17 20:12 99 Nasal Cannula 2.00 01/18/17 20:12 19 01/18/17 20:12 57 01/18/17 20:10 98.5 118/66 (83) Orders Orders Electrocardiogram (01/18/17 20:19) Basic Metabolic Panel (Bmp) (01/18/17 20:19) Ckmb (Isoenzyme) Profile (01/18/17 20:19) Complete Blood Count With Diff (01/18/17 20:19) Magnesium (Mg) (01/18/17 20:19) Prothrombin Time / Inr (Pt) (01/18/17 20:19) Act Partial Throm Time (Ptt) (01/18/17 20:19) Troponin I (01/18/17 20:19) Chest, Single Ap (01/18/17 20:19) Ecg Monitoring (01/18/17 20:19) Bilateral Bp Monitoring (01/18/17 20:19) Iv Access Insert/Monitor (01/18/17 20:19) Oximetry (01/18/17 20:19) Oxygen Administration (01/18/17 20:19) Sodium Chloride 0.9% Flush (Ns Flush) (01/18/17 20:30) D-Dimer (01/18/17 20:35) CKMB (01/18/17 20:05) CKMB% (01/18/17 20:05) Labs Laboratory Tests Test 01/18/17 20:05 White Blood Count 12.5 TH/MM3 Red Blood Count 4.90 MIL/MM3 Hemoglobin 14.2 GM/DL Hematocrit 42.6 % Mean Corpuscular Volume 87.0 FL Mean Corpuscular Hemoglobin 29.0 PG Mean Corpuscular Hemoglobin Concent 33.3 % Red Cell Distribution Width 13.7 % Platelet Count 170 TH/MM3 Mean Platelet Volume 9.8 FL Neutrophils (%) (Auto) 70.6 % Lymphocytes (%) (Auto) 17.8 % Monocytes (%) (Auto) 5.6 % Eosinophils (%) (Auto) 5.3 % Basophils (%) (Auto) 0.7 % Neutrophils # (Auto) 8.8 TH/MM3 Lymphocytes # (Auto) 2.2 TH/MM3 Monocytes # (Auto) 0.7 TH/MM3 Eosinophils # (Auto) 0.7 TH/MM3 Basophils # (Auto) 0.1 TH/MM3 CBC Comment DIFF FINAL Differential Comment Prothrombin Time 11.8 SEC Prothromb Time International Ratio 1.1 RATIO Activated Partial Thromboplast Time 21.7 SEC D-Dimer Quantitative (PE/DVT) 0.42 MG/L FEU Blood Urea Nitrogen 15 MG/DL Creatinine 1.00 MG/DL Random Glucose 84 MG/DL Calcium Level 8.5 MG/DL Magnesium Level 2.3 MG/DL Sodium Level 138 MEQ/L Potassium Level 4.4 MEQ/L Chloride Level 105 MEQ/L Carbon Dioxide Level 27.1 MEQ/L Anion Gap 6 MEQ/L Estimat Glomerular Filtration Rate 111 ML/MIN Total Creatine Kinase 267 U/L Creatine Kinase MB 0.8 NG/ML Troponin I LESS THAN 0.02 NG/ML MDM Medical Decision Making Medical Screen Exam Complete: Yes Emergency Medical Condition: Yes Interpretation(s) EKG reviewed by Dr. Todd shows sinus bradycardia with ventricular rate of 58. No STEMI. Chest x-ray read by radiologist shows: Mild diffuse hazy infiltrate of the right lung. Differential Diagnosis Atypical chest pain, pneumonia, electrolyte abnormality, costochondritis, pleurisy, PE, other Narrative Course The patient is non-ill appearing and is in no respiratory distress and comfortable. The patient moves air well and oxygen saturations are normal. Chest x-ray revealed evidence of pneumonia. The patient looks great and has no significant co morbidities and may be discharged home on outpatient therapy. Plan of care and management were discussed with the patient who agreed with plan. The patient was instructed to follow up with their physician and instructed to return if worsens, progressively worsening shortness of breath or difficulty breathing, persistent fever, chest pains or discomfort, inability to keep medication or fluids down with or without vomiting, or as needed or unable to establish follow up within a timely manner. Patient in no obvious distress upon re-evaluation. All pertinent laboratory/ Radiology result(s) discussed with patient. Discussed patient with Dr. Todd prior to discharge, was agreeable plan of care and disposition. Patient was asked if they wanted to speak to my attending, which the patient did not wish to do at this time. Any questions/concerns in reference to patient diagnosis/ condition discussed and clarified prior to patient's discharge. Reinforced sheer importance of close follow up with patient's primary physician or primary care clinic. Instructed patient to return to ED immediately, if symptoms return/ worsen. Patient showed understanding of above instructions. Further instructions and recommendations were detailed in discharge paperwork. Patient ambulated without difficulty out of ED at discharge in police custody. Diagnosis Primary Impression: Pneumonia Qualified Codes: J18.9 - Pneumonia, unspecified organism Referrals: [facility] Patient Instructions: Community Acquired Pneumonia (ED), General Instructions Additional Instructions: Follow-up with your primary care physician in 3-5 days reevaluation. Take all medication as prescribed. Return to the emergency department if symptoms get worse. Med/Other Pt SpecificInfo: Prescription(s) given Scripts Azithromycin (Zithromax Z-Joni) 250 Mg Dspk 250 MG PO DIRECTED for Infection, #1 DSPK 0 Refills 500 MG (2 tabs) day 1, then 1 tab days 2-5. Prov: Jeanie Todd MD 01/18/17 Disposition: 01 DISCHARGE HOME Condition: Stable Jaquan Saleem Jan 18, 2017 20:39
[2017-01-18 20:44] LABS: APTT (PATIENT) 21.7 SEC (24.3-30.1); INTERNATIONAL NORMALIZED RATIO 1.1 RATIO; PROTHROMBIN TIME - PATIENT 11.8 SEC (9.8-11.6)
[2017-01-18 20:48] LABS: AUTOMATED NEUTROPHIL # 8.8 TH/MM3 (1.8-7.7); BASOPHIL # 0.1 TH/MM3 (0-0.2); BASOPHIL % 0.7 % (0.0-2.0); EOSINOPHIL # 0.7 TH/MM3 (0-0.4); EOSINOPHIL % 5.3 % (0.0-4.0); HEMATOCRIT 42.6 % (39.0-51.0); HEMO FLAGS DIFF FINAL; LYMPH % 17.8 % (9.0-44.0); LYMPHOCYTE # 2.2 TH/MM3 (1.0-4.8); MEAN CORPUSCULAR HGB CONC 33.3 % (32.0-36.0); MONO % 5.6 % (0.0-8.0); NEUT % 70.6 % (16.0-70.0); PLATELET COUNT 170 TH/MM3 (150-450); RED CELL DISTRIBUTION WIDTH 13.7 % (11.6-17.2); WHITE BLOOD COUNT 12.5 TH/MM3 (4.0-11.0)
[2017-01-18 20:52] LABS: CREATINE KINASE 267 U/L (39-308)
[2017-01-18 21:04] LABS: CKMB 0.8 NG/ML (0.5-3.6)
[2017-01-18 21:06] LABS: ANION GAP 6 MEQ/L (5-15); BICARBONATE 27.1 MEQ/L (21.0-32.0); BLOOD UREA NITROGEN 15 MG/DL (7-18); CHLORIDE 105 MEQ/L (98-107); GLOMERULAR FILTRATION RATE 111 ML/MIN (>89); MAGNESIUM 2.3 MG/DL (1.5-2.5); POTASSIUM 4.4 MEQ/L (3.5-5.1); SODIUM (NA) 138 MEQ/L (136-145)
[2017-01-18] MEDS ORDERED: ZITHTAB PO (21:25)
--- NOTE | 2017-01-19 15:04 | EKG ---
Date Performed: 01/18/2017 Time Performed: 20:07:59 PTAGE: 26 years EKG: SINUS BRADYCARDIA ST ELEVATION, PROBABLY EARLY REPOLARIZATION BORDERLINE ECG NO PREVIOUS TRACING DOCTOR: Oswaldo Arias Interpretating Date/Time 01/19/2017 15:03:32
== END 2017-01-18 21:46 ==
LOC: NEPE 19:57
DX: J18.9 Pneumonia, unspecified organism (principal); R94.31 Abnormal electrocardiogram [ECG] [EKG]; F17.290 Nicotine dependence, other tobacco product, uncomplicated
CPT/HCPCS: 71010; 80048; 82550; 82552; 83735; 84484; 85025; 85379; 85610; 85730; 93005

== ENCOUNTER 2017-06-17 08:15 | Emergency (ER) | payer MEDICAID, OTHER ==
[~2017-06-17] VITALS: Ht 167.6 cm; Wt 60.0 kg
[~2017-06-17 08:15] MED LIST changes: -AMOX500T PO; -AMOX875T PO; -METR-1 PO; -OMEP20TA PO; +ZITHTAB PO; -[UNRECOGNIZED DRUG - CODE] CHEW
[2017-06-17 08:20] VITALS: BP 142/62; PULSE 92; RESP 17; TEMP 98.2; O2SAT 96
--- NOTE | 2017-06-17 09:19 | RADRPT ---
EXAM DATE/TIME: 06/17/2017 08:54 [facility] COMPARISON: No previous studies available for comparison. INDICATIONS : Chest pain, patient points to center of chest MEDICAL HISTORY : None. SURGICAL HISTORY : None. ENCOUNTER: Initial ACUITY: 1 day PAIN SCORE: Non-responsive. LOCATION: Bilateral chest FINDINGS: PA and lateral views of the chest demonstrate the lungs to be symmetrically aerated without evidence of mass, infiltrate or effusion. The cardiomediastinal contours are unremarkable. Osseous structure s are intact. CONCLUSION: Normal examination. Vicente Thomas Jr., MD on June 17, 2017 at 9:06 Board Certified Radiologist. This report was verified electronically.
--- NOTE | 2017-06-17 09:39 | PD ---
HPI Chief Complaint: Medical Clearance Time Seen by Provider: 09:08 Travel History International Travel<30 days: No Contact w/Intl Traveler<30days: No Traveled to known affect area: No History of Present Illness HPI patient brought in by police dept. up until he was in the back of the police car , pt was fine....then en route he c/o chest pain and brought into ED. once pd was asked for privacy to stay outside room...patient was not very forthcoming about his reason, but stated his chest pain is sharp, points to right pec, worse with movement. denies any fever/cough/n/v/d/rash/ no alleviating factors. all denies pmhx:denies pshx:denies PFSH Past Medical History Anxiety: No Depression: No Cancer: No Cardiovascular Problems: No Diminished Hearing: No Endocrine: No Gastrointestinal Disorders: Yes Genitourinary: No Musculoskeletal: No Neurologic: No Psychiatric: No Respiratory: No Past Surgical History Abdominal Surgery: Yes (EXPLORATORY LAP) Social History Alcohol Use: No Tobacco Use: Yes (1 pack per day) Substance Use: No (DENIES) Allergies-Medications (Allergen,Severity, Reaction): Coded Allergies: No Known Allergies (Unverified , 01/18/17) Reported Meds & Prescriptions Reported Meds & Active Scripts Active No Active Prescriptions or Reported Medications Review of Systems General / Constitutional: No: Fever Eyes: No: Visual changes HENT: No: Headaches Cardiovascular: Positive: Chest Pain or Discomfort Respiratory: No: Shortness of Breath Gastrointestinal: No: Abdominal Pain Genitourinary: No: Dysuria Musculoskeletal: No: Pain Skin: No Rash Neurologic: No: Weakness Psychiatric: No: Depression Endocrine: No: Polydipsia Hematologic/Lymphatic: No: Easy Bruising Physical Exam Narrative GENERAL: SKIN: Warm and dry. HEAD: Atraumatic. Normocephalic. EYES: Pupils equal and round. No scleral icterus. No injection or drainage. ENT: No nasal bleeding or discharge. Mucous membranes pink and moist. NECK: Trachea midline. No JVD. CARDIOVASCULAR: Regular rate and rhythm. RESPIRATORY: No accessory muscle use. Clear to auscultation. Breath sounds equal bilaterally. fully reproducible rt pect pain on palpation GASTROINTESTINAL: Abdomen soft, non-tender, nondistended. MUSCULOSKELETAL: Extremities without clubbing, cyanosis, or edema. No obvious deformities. NEUROLOGICAL: Awake and alert. No obvious cranial nerve deficits. Motor grossly within normal limits. Five out of 5 muscle strength in the arms and legs. Normal speech. PSYCHIATRIC: Appropriate mood and affect; insight and judgment normal. Data Data Last Documented VS Vital Signs Date Time Temp Pulse Resp B/P (MAP) Pulse Ox O2 Delivery O2 Flow Rate FiO2 06/17/17 08:20 98.2 92 17 142/62 (88) 96 Orders Orders Electrocardiogram (06/17/17 ) Chest, Pa & Lat (06/17/17 ) MDM Medical Decision Making Medical Screen Exam Complete: Yes Emergency Medical Condition: Yes Medical Record Reviewed: Yes Interpretation(s) nsr, normal intervals, no stemi pattern Differential Diagnosis chest wall pain v ptx v pna v pericarditis v stemi Narrative Course upon evaluation of cxr and ekg no clinical e/o ptx/pna/stemi or pericarditis....reproducible cw pain noted on exam. Diagnosis Primary Impression: Chest wall pain Patient Instructions: Chest Wall Pain (GEN), General Instructions Additional Instructions: you can take over the counter motrin, alleve or naprosyn for your pain if needed. Scripts No Active Prescriptions or Reported Meds Disposition: [address] LAW ENFORCEMNT Condition: Stable Diego Rubio MD Jun 17, 2017 09:39
--- NOTE | 2017-06-17 14:17 | EKG ---
Date Performed: 06/17/2017 Time Performed: 08:36:02 PTAGE: 27 years EKG: Sinus rhythm WITH SINUS ARRHYTHMIA NONSPECIFIC T-WAVE ABNORMALITY BORDERLINE ECG PREVIOUS TRACING : 01/18/[address] elevation most consistent with repolarization change. Vo ltage criteria for left ventricular hypertrophy. Since the prior tracing, the ST elevation is slightl y less pronounced, but there is otherwise no significant serial change. DOCTOR: Oksana Verdugo Interpretating Date/Time 06/17/2017 14:15:39
== END 2017-06-17 10:04 ==
LOC: NEPD 08:15
DX: R07.89 Other chest pain (principal); I49.9 Cardiac arrhythmia, unspecified; R94.31 Abnormal electrocardiogram [ECG] [EKG]; F17.200 Nicotine dependence, unspecified, uncomplicated
CPT/HCPCS: 71046; 93005; 99284